=== PATIENT | male | born 1965 | race Caucasian/White ===

== ENCOUNTER 2018-03-04 16:33 | Emergency (ER) | payer BC ==
[2018-03-04] MEDS ORDERED: ASPIRIN CHEW 81 MG TABLET PO STA (16:56)
--- NOTE | 2018-03-04 16:57 | ED Physician Documentation ---
PD HPI CHEST PAIN - Stated complaint Stated Complaint: SOA/CHEST PX - Chief complaint Chief Complaint: Cardiac - History obtained from History obtained from: Patient, Family - History of Present Illness Timing - onset: Other (He has been working a lot lately around the house and is under stress personally. About an hour and a half ago he developed pain that he can reproduce in the chest, it is of the left costochondral joints and hurts if he presses on it or turns his head a certain way. There is no associated shortness of breath.) Review of Systems Constitutional: denies: Fever, Chills Cardiac: reports: Chest pain / pressure. denies: Palpitations, Pedal edema, Calf pain Respiratory: denies: Dyspnea, Cough, Hemoptysis, Wheezing PD PAST MEDICAL HISTORY - Present Medications Home Medications: Ambulatory Orders Medication Instructions Recorded Confirmed Meloxicam [Mobic] 15 mg PO 03/04/18 Omeprazole [PriLOSEC] 20 mg PO DAILY 03/04/18 03/04/18 - Allergies Allergies/Adverse Reactions: Allergies Allergy/AdvReac Type Severity Reaction Status Date / Time Penicillins Allergy Unknown Verified 03/04/18 17:08 PD ED PE NORMAL - Vitals Vital signs reviewed: Yes - General General: Alert and oriented X 3, No acute distress - Neck Neck: Supple, no meningeal sign, No bony TTP - Cardiac Cardiac: RRR, No murmur - Respiratory Respiratory: No respiratory distress, Clear bilaterally, Other (Reproducible pain of the left costochondral joints.) - Abdomen Abdomen: Non tender - Extremities Extremities: No edema, No calf tenderness / cord - Neuro Neuro: Alert and oriented X 3, Normal speech Results - Vitals Vitals: Vital Signs - 24 hr 03/04/18 03/04/18 16:35 19:32 Temperature 36 C L Heart Rate 84 73 Respiratory 16 18 Rate Blood Pressure 187/114 H 149/106 H O2 Saturation 100 97 Oxygen O2 Source Room air - EKG (time done) 643 Rate: Rate (enter#) (90) Rhythm: NSR [place]: Normal Intervals: Normal [place] QRS: Normal Ischemia: Non specific changes. No: ST elevation c/w repol, ST depression Computer interpretation: Agree with computer - Labs Labs: Laboratory Tests 03/04/18 03/04/18 03/04/18 16:50 16:50 16:50 WBC 8.0 RBC 5.61 Hgb 16.1 Hct 47.7 MCV 85.1 MCH 28.7 MCHC 33.7 RDW 12.8 Plt Count 236 MPV 8.9 Neut # 4.4 Lymph # 2.5 [place] # 0.9 Eos # 0.2 Baso # 0.1 Absolute Nucleated RBC 0.00 Nucleated RBC % 0.0 Sodium 138 Potassium 3.7 Chloride 104 Carbon Dioxide 26 Anion Gap 8.0 BUN 16 Creatinine 1.0 Estimated GFR (MDRD) 79 L Glucose 108 H Calcium 9.4 Total Bilirubin 1.9 H AST 23 ALT 32 Alkaline Phosphatase 54 Total Creatine Kinase 180 CK-MB (CK-2) 3.8 Troponin I < 0.04 Total Protein 7.5 Albumin 4.8 Globulin 2.7 Albumin/Globulin Ratio 1.8 Lipase 34 03/04/18 18:58 WBC RBC Hgb Hct MCV MCH MCHC RDW Plt Count MPV Neut # Lymph # [place] # Eos # Baso # Absolute Nucleated RBC Nucleated RBC % Sodium Potassium Chloride Carbon Dioxide Anion Gap BUN Creatinine Estimated GFR (MDRD) Glucose Calcium Total Bilirubin AST ALT Alkaline Phosphatase Total Creatine Kinase CK-MB (CK-2) Troponin I < 0.04 Total Protein Albumin Globulin Albumin/Globulin Ratio Lipase - Rads (name of study) 1v chest Radiology: EMP read contemporaneously (normal) PD MEDICAL DECISION MAKING - ED course ED course: 52-year-old gentleman with very atypical and reproducible chest pain most consistent with costochondritis. He has a nonischemic EKG and troponins were done in the emergency department and both were negative. Departure - Departure Disposition: 01 Home, Self Care Clinical Impression: Costochondritis, acute Condition: Good Record reviewed to determine appropriate education?: Yes Instructions: ED Chest Pain NonCardiac Comments: Ibuprofen as needed for pain, follow-up with your doctor within the week and recheck your blood pressure.
[2018-03-04 17:00] LABS: BASOPHILS # (AUTO) 0.1 10^3/uL (0.0-0.1); BASOPHILS % (AUTO) 0.7 %; EOSINOPHILS # (AUTO) 0.2 10^3/uL (0.0-0.7); EOSINOPHILS % (AUTO) 1.9 %; HGB - HEMOGLOBIN 16.1 g/dL (14.0-18.0); LYMPHOCYTES # (AUTO) 2.5 10^3/uL (1.5-3.5); MEAN CORPUSCULAR HEMOGLOBIN 28.7 pg (27.0-31.0); MEAN CORPUSCULAR HGB CONC 33.7 g/dL (32.0-36.0); MEAN CORPUSCULAR VOLUME 85.1 fL (80.0-94.0); MEAN PLATELET VOLUME 8.9 fL (7.4-11.4); MONOCYTES # (AUTO) 0.9 10^3/uL (0.0-1.0); MONOCYTES % (AUTO) 10.9 %; NEUTROPHILS # (AUTO) 4.4 10^3/uL (1.5-6.6); NEUTROPHILS % (AUTO) 55.5 %; PLT - PLATELET COUNT 236 10^3/uL (130-450); RED BLOOD COUNT 5.61 10^6/uL (4.70-6.10); RED CELL DISTRIBUTION WIDTH 12.8 % (12.0-15.0)
[2018-03-04 17:12] LABS: ALBUMIN 4.8 g/dL (3.2-5.5); ALBUMIN/GLOBULIN RATIO 1.8 (1.0-2.2); BILIRUBIN,TOTAL 1.9 mg/dL (0.2-1.0); CALCIUM 9.4 mg/dL (8.5-10.3); TOTAL PROTEIN 7.5 g/dL (6.7-8.2)
[2018-03-04 17:16] LABS: TROPONIN I < 0.04 ng/mL (<0.49)
[2018-03-04 17:18] LABS: CREATINE KINASE MB 3.8 ng/mL (0.6-6.3)
--- NOTE | 2018-03-04 17:24 | XRAY Preliminary Report ---
Exam: XR CHEST 1 VIEW X-RAY IMPRESSION: 1. No acute pulmonary process. 2. Postoperative changes in the right shoulder are unchanged. [facility] SITE ID: [id number]
--- NOTE | 2018-03-04 18:09 | XRAY Report ---
EXAM: CHEST RADIOGRAPHY EXAM DATE: 03/04/2018 05:07 PM. CLINICAL HISTORY: Chest pain. COMPARISON: 02/06/2012. TECHNIQUE: 1 view. FINDINGS: Lungs/Pleura: No focal opacities evident. No pleural effusion. No pneumothorax. Mediastinum: Within exam limitations, the cardiomediastinal contour is normal. Other: EKG leads overlie the chest. Postoperative changes in the right coracoid is noted. IMPRESSION: 1. No acute pulmonary process. 2. Postoperative changes in the right shoulder are unchanged. [facility] Referring Provider Line: [phone] SITE ID: [id number]
[2018-03-04 19:33] VITALS: BP 149/106
== END 2018-03-04 19:55 | disposition home or self-care (01) ==
LOC: ED 16:33
DX: M94.0 Chondrocostal junction syndrome [Tietze] (principal)
CPT/HCPCS: 36415; 71045; 80053; 82550; 82553; 83690; 84484; 85025; 93005; 99283; 99284; A9270

== ENCOUNTER 2021-08-19 08:00 | Outpatient (CLI) | payer BC, OTHER ==
[2021-08-19 12:21] LABS: BASOPHILS % (AUTO) 0.5 %; EOSINOPHILS # (AUTO) 0.2 10^3/uL (0.0-0.7); HCT - HEMATOCRIT 49.2 % (42.0-52.0); HGB - HEMOGLOBIN 17.1 g/dL (14.0-18.0); LYMPHOCYTES # (AUTO) 1.7 10^3/uL (1.5-3.5); LYMPHOCYTES % (AUTO) 25.9 %; MEAN CORPUSCULAR HEMOGLOBIN 29.7 pg (27.0-31.0); MEAN CORPUSCULAR HGB CONC 34.8 g/dL (32.0-36.0); MEAN CORPUSCULAR VOLUME 85.4 fL (80.0-94.0); MEAN PLATELET VOLUME 11.3 fL (7.4-11.4); MONOCYTES # (AUTO) 0.6 10^3/uL (0.0-1.0); MONOCYTES % (AUTO) 9.3 %; NEUTROPHILS # (AUTO) 3.9 10^3/uL (1.5-6.6); NEUTROPHILS % (AUTO) 60.7 %; PLT - PLATELET COUNT 256 10^3/uL (130-450); RED BLOOD COUNT 5.76 10^6/uL (4.70-6.10); RED CELL DISTRIBUTION WIDTH 13.1 % (12.0-15.0); WHITE BLOOD COUNT 6.4 x10^3/uL (4.8-10.8)
[2021-08-19 12:34] LABS: CALCIUM 9.6 mg/dL (8.5-10.3); CREATININE 0.7 mg/dL (0.6-1.2); POTASSIUM 3.8 mmol/L (3.5-5.0)
== END 2021-08-19 23:59 | disposition home or self-care (01) ==
LOC: LAB.N 08:00
PROVIDERS: ATTEND Physician Assistant Medical
DX: I10 Essential (primary) hypertension (principal)
CPT/HCPCS: 36415; 80048; 84443; 85025

== ENCOUNTER 2021-08-23 04:24 | Emergency (ER) | payer OTHER ==
[2021-08-23] MEDS ORDERED: KETOROLAC 30 MG/ML VIAL IM STA (05:00)
--- NOTE | 2021-08-23 05:03 | ED Physician Documentation ---
History of Present Illness - Stated complaint Stated Complaint: BACK SPASMS - Chief complaint Chief Complaint: Ext Problem - History obtained from History obtained from: Patient - Additonal information Additional information: 55-year-old man with history of right rotator cuff repair presents with right shoulder spasm for the past 4 to 5 days. Patient went to clinic and was given muscle relaxer methocarbamol 500 mg as needed which she took at 4 AM this morning without relief. Patient is endorsing moderate severity cramping right shoulder pain, worse with range of motion of the shoulder, with associated tingling to the fingertips. Denies trauma. Denies kidney issues or history of gastrointestinal bleeding. Review of Systems Musculoskeletal: reports: Other (R shoulder pain) PD PAST MEDICAL HISTORY - Past Medical History Past Medical History: Yes Neuro: Headaches GI: GERD, GI bleed - Past Surgical History Past Surgical History: Yes Ortho: Rotator cuff repair - Present Medications Home Medications: Ambulatory Orders Medication Instructions Recorded Confirmed Ketorolac [Toradol] 10 mg PO Q6H PRN #30 tablet 08/23/21 hydroCHLOROthiazide 25 mg PO DAILY 08/23/21 08/23/21 [Hydrochlorothiazide] methocarbamoL [Methocarbamol] 500 mg PO TID PRN 08/23/21 08/23/21 - Allergies Allergies/Adverse Reactions: Allergies Allergy/AdvReac Type Severity Reaction Status Date / Time Penicillins Allergy Unknown Verified 08/23/21 04:46 - Social History Does the pt smoke?: No Smoking Status: Never smoker Does the pt drink ETOH?: Yes Does the pt have substance abuse?: No - Immunizations Immunizations are current?: Yes - POLST Patient has POLST: No PD ED PE NORMAL - Vitals Vital signs reviewed: Yes - General General: Alert and oriented X 3, No acute distress, Well developed/nourished - HEENT HEENT: Atraumatic, PERRL, EOMI - Derm Derm: Normal color, Warm and dry - Extremities Extremities: Other (R scapula discomfort to palpation in muscle distribution. FROM R shoulder, elbow, wrist. 2+ BL Radial pulses. normal strength, sensation, cap refill) - Neuro Neuro: No motor deficit, No sensory deficit Results - Vitals Vitals: Vital Signs - 24 hr 08/23/21 08/23/21 04:29 04:45 Temperature 36.8 C Heart Rate 72 68 Respiratory 20 Rate Blood Pressure 161/114 H 161/104 H O2 Saturation 96 95 Oxygen O2 Source Room air PD MEDICAL DECISION MAKING - ED course ED course: 55-year-old man presented with muscle spasm. Toradol provided relief. Prescription provided. Symptomatic care discussed and return precautions given. Patient will follow up with his primary doctor. Departure - Departure Clinical Impression: Pain in extremity Condition: Good Instructions: ANTI-INFLAMMATORY, General Prescriptions: Ketorolac [Toradol] 10 mg PO Q6H PRN #30 tablet PRN Reason: Pain Comments: You are seen in the emergency department for right shoulder pain. You received Toradol in the emergency department and a Toradol prescription. Do not take with other NSAIDs within 6 hours. Please follow-up with your primary doctor this week. Return the emergency department you have any new or worsening symptoms or other concerns.
[2021-08-23] MEDS ORDERED: KETOROLAC 30 MG/ML VIAL ONE (05:09)
[2021-08-23] MEDS ORDERED: oxyCODONE 5 MG TABLET PO STA (05:35)
[2021-08-23] MEDS ORDERED: CYCLOBENZAPRINE 10 MG TABLET PO STA (05:35)
[2021-08-23] MEDS ORDERED: CYCLOBENZAPRINE 10 MG TABLET PO ONE (05:53)
[2021-08-23] MEDS ORDERED: oxyCODONE 5 MG TABLET ONE (05:54)
[2021-08-23 07:02] LABS: CALCIUM 9.6 mg/dL (8.5-10.3); CREATININE 0.9 mg/dL (0.6-1.2)
[2021-08-23] MEDS ORDERED: ONDANSETRON ODT 4 MG TABLET TL STA (07:53)
[2021-08-23] MEDS ORDERED: DEXAMETHASONE 10 MG/ML VIAL PO STA (07:53)
[2021-08-23] MEDS ORDERED: CHERRY SYRUP 10 ML UDC PO ONE (07:53)
[2021-08-23] MEDS ORDERED: HYDROmorphone 1 MG/ML CARPUJECT IM STA (07:53)
--- NOTE | 2021-08-23 08:02 | ED Physician Documentation ---
ED Addendum - Addendum Addendum: 08/23/21 08:00 55-year-old male has returned from a fishing trip to [place] where he caught a 100 pound [place]. Took him about a half an hour to rule this in and he shows me a picture of him lifting this fish over the edge of a boat. He states that he caught this fish 6 days ago and 2 days later he is having severe pain in his right rhomboid area affecting his arm as well and he went into see his primary was noted to have hypertension and was placed on hydrochlorothiazide he noted a worsening in his spasm and has not had resolution of his symptoms.He has been treated here in the emergency department by Dr. Dr. Williamson with Toradol and oxycodone and cyclobenzaprine and has not had adequate relief of his pain. I evaluated the patient and found on interrogation the inferior vena cava that he was a little bit more than a liter deficit on dehydration his BUN is slightly up his potassium is normal. He is able to orally hydrate. He is administered 10 mg of dexamethasone he has persistence of pain in the rhomboid muscles and he is administered Dilaudid and Zofran. His blood pressure is spiked when he arrives and improves with pain control. I have discussed with the patient alternative agents for blood pressure control and he will stop this medication for the next several days until his pain is under control and follow up with his primary as planned. 08/23/21 08:15
[2021-08-23 08:28] VITALS: BP 157/110
== END 2021-08-23 08:49 | disposition home or self-care (01) ==
LOC: ED 04:24
DX: M25.511 Pain in right shoulder (principal)
CPT/HCPCS: 36415; 80048; 96372; 99283; A9270; J1170; Q0162

== ENCOUNTER 2024-01-04 12:03 | Outpatient (CLI) | payer BC ==
--- NOTE | 2024-01-05 14:44 | XRAY Report ---
PROCEDURE: Lumbar Spine 2-3V INDICATIONS: LOW BACK PAIN, ACUTE TECHNIQUE: 2 views of the lumbar spine were acquired. COMPARISON: None. FINDINGS: Bones: 5 [id number] vertebrae are present. There is normal bony alignment. No vertebral body compression fractures. No suspicious bony lesions. Multilevel degenerative disc disease, moderate a t L5-S1, mild at other levels. Moderate facet arthropathy at L5 L5 and L5-S1. Soft tissues: Overlying bowel gas pattern is normal. Vascular calcifications consistent with atheros clerosis. IMPRESSION: 1. Moderate degenerative disc and facet disease. Reviewed by: Du Minor MD on 01/05/2024 2:43 PM PDT Approved by: Du Minor MD on 01/05/2024 2:43 PM PDT Station ID: [id number]
--- NOTE | 2024-01-05 14:53 | XRAY Report ---
PROCEDURE: Hip w/Pelvis 2-3V RT INDICATIONS: PAIN IN RIGHT HIP TECHNIQUE: 2 views of the hip were acquired. COMPARISON: None. FINDINGS: Bones: No fractures or dislocations. No suspicious bony lesions. Mild degenerative joint disease in hips and sacrum iliac joints. Soft tissues: No suspicious soft tissue calcifications or masses. IMPRESSION: 1. No acute bony abnormality. If clinical symptoms persist or there is clinical suspicion for interna l derangement, consider MRI for further evaluation. 2. Mild degenerative joint disease. Reviewed by: Du Minor MD on 01/05/2024 2:52 PM PDT Approved by: Du Minor MD on 01/05/2024 2:52 PM PDT Station ID: [id number]
== END 2024-01-04 12:04 | disposition home or self-care (01) ==
LOC: DI.N 12:03
PROVIDERS: ATTEND Nurse Practitioner
DX: M16.11 Unilateral primary osteoarthritis, right hip (principal); M47.26 Other spondylosis with radiculopathy, lumbar region; M51.16 Intervertebral disc disorders with radiculopathy, lumbar region